=== PATIENT | female | born 1940 | race African-American/Black ===

== ENCOUNTER 2017-06-12 15:54 | Emergency (ER) | payer MEDICARE, OTHER ==
[~2017-06-12] VITALS: Ht 162.6 cm; Wt 53.5 kg
[~2017-06-12 15:54] MED LIST: COZAAR 25 MG TA25 M1; GLUCOTROL5 MG PO; HUMALOG100 UNIT/1 SUBQ; NORVASC2.5 MG PO
[2017-06-12] MEDS ORDERED: KEFLEX500 M1 PO (16:06)
[2017-06-12] MEDS ORDERED: CORTISPORIN OTI10 M2 OTIC (16:07)
[2017-06-12] MEDS ORDERED: LEVEMIR SUBQ (16:07)
[2017-06-12] MEDS ORDERED: VALTREX1000 MG PO (16:52)
[2017-06-12 16:57] VITALS: BP 140/60
[2017-06-13] MEDS ORDERED: NORCO 5-325 TA1 EACH PO (15:25)
[2017-06-13] MEDS ORDERED: BACTROBAN15 GM TOP (15:25)
== END 2017-06-12 16:58 | disposition home or self-care (01) ==
LOC: M.ERS 15:54
DX: B02.9 Zoster without complications (principal); I10 Essential (primary) hypertension; E11.9 Type 2 diabetes mellitus without complications; F10.99 Alcohol use, unspecified with unspecified alcohol-induced disorder

== ENCOUNTER 2017-06-13 14:07 | Emergency (ER) | payer MEDICARE, OTHER ==
[~2017-06-13] VITALS: Ht 162.6 cm; Wt 53.8 kg
[~2017-06-13 14:07] MED LIST changes: +CORTISPORIN OTI10 M2 OTIC; +KEFLEX500 M1 PO; +LEVEMIR SUBQ; +VALTREX1000 MG PO
[2017-06-13] MEDS ORDERED: NORCO 5-325 TA1 EACH PO (15:25)
[2017-06-13] MEDS ORDERED: BACTROBAN15 GM TOP (15:25)
[2017-06-13 15:35] VITALS: BP 137/63
== END 2017-06-13 15:36 | disposition home or self-care (01) ==
LOC: M.ERS 14:07
DX: B02.9 Zoster without complications (principal); I10 Essential (primary) hypertension; E11.9 Type 2 diabetes mellitus without complications; F03.90 Unspecified dementia, unspecified severity, without behavioral disturbance, psychotic disturbance, mood disturbance, and anxiety; F10.99 Alcohol use, unspecified with unspecified alcohol-induced disorder

== ENCOUNTER 2018-10-01 16:29 | Emergency (ER) | payer MEDICARE, OTHER ==
[~2018-10-01] VITALS: Ht 162.6 cm; Wt 53.1 kg
[~2018-10-01 16:29] MED LIST changes: +BACTROBAN15 GM TOP; +NORCO 5-325 TA1 EACH PO
[2018-10-01] MEDS ORDERED: ZOFRAN ODT4 MG PO (16:42)
[2018-10-01 17:33] LABS: HEMATOCRIT 24.6 % (37.0-47.0); HEMOGLOBIN 8.9 gm/dL (12.0-15.0); MCH 31.2 pg (26.0-34.0); MCHC 36.3 g/dL (28.0-37.0); MCV 85.9 fL (80.0-100.0); NUCLEATED RBCS 0 /100WBC; RBC 2.87 mil/uL (4.20-5.00); RDW-CV 14.3 % (10.5-14.5); WBC 3.1 thou/uL (4.0-11.0)
[2018-10-01 17:37] LABS: PLATELET COUNT* 48 thou/uL (150-400)
[2018-10-01 17:49] LABS: CALCIUM 8.8 mg/dL (8.5-10.1); CREATININE 1.1 mg/dL (0.6-1.3); POTASSIUM 4.1 mmol/L (3.5-5.1)
[2018-10-01 17:53] LABS: ALBUMIN 3.8 g/dL (3.4-5.0); TOTAL BILIRUBIN 1.1 mg/dL (<0.1-1.0)
[2018-10-01 18:14] LABS: ABSOLUTE LYMPHOCYTES 2.8 thou/uL (0.8-5.3); ABSOLUTE MONOCYTES 0.1 thou/uL (0.0-1.2); ABSOLUTE NEUTROPHILS 0.2 thou/uL (1.6-8.1); ATYPICAL LYMPHS 3 %
[2018-10-01 18:15] LABS: PLATELET ESTIMATE DECREASED
[2018-10-01 20:17] VITALS: BP 127/55
== END 2018-10-01 20:17 | disposition home or self-care (01) ==
LOC: M.ERS 16:29
PROVIDERS: Nurse Practitioner Family
DX: I82.402 Acute embolism and thrombosis of unspecified deep veins of left lower extremity (principal); I10 Essential (primary) hypertension; F03.90 Unspecified dementia, unspecified severity, without behavioral disturbance, psychotic disturbance, mood disturbance, and anxiety; E11.9 Type 2 diabetes mellitus without complications; Z79.4 Long term (current) use of insulin

== ENCOUNTER 2019-02-04 20:46 | Inpatient (IN) | payer MEDICARE, OTHER ==
[~2019-02-04] VITALS: Ht 162.6 cm; Wt 52.6 kg
[~2019-02-04 20:46] MED LIST changes: +ZOFRAN ODT4 MG PO
[2019-02-04 20:55] VITALS: BP 118/53
[2019-02-04] MEDS ORDERED: LEVAQUIN 500 M500 M2 PO (20:59)
[2019-02-04] MEDS ORDERED: VITAMIN D1000 UNI1 PO (20:59)
[2019-02-04 21:28] LABS: HEMOGLOBIN 9.3 gm/dL (12.0-15.0); MCH 33.8 pg (26.0-34.0); MPV 8.6 fl. (7.2-11.1); NUCLEATED RBCS 0 /100WBC; PLATELET COUNT* 51 thou/uL (150-400)
[2019-02-04 21:31] LABS: HEMATOCRIT 25.2 % (37.0-47.0); MCHC 36.7 g/dL (28.0-37.0); MCV 92.1 fL (80.0-100.0); RBC 2.74 mil/uL (4.20-5.00); RDW-CV 15.1 % (10.5-14.5); WBC 9.1 thou/uL (4.0-11.0)
[2019-02-04 21:36] LABS: CALCIUM 8.5 mg/dL (8.5-10.1); CREATININE 1.2 mg/dL (0.6-1.3); POTASSIUM 4.1 mmol/L (3.5-5.1)
[2019-02-04 21:41] LABS: ALBUMIN 3.8 g/dL (3.4-5.0); TOTAL BILIRUBIN 0.9 mg/dL (<0.1-1.0); TOTAL PROTEIN 6.1 g/dL (6.4-8.2)
[2019-02-04 21:42] LABS: URINE BILIRUBIN NEGATIVE (Negative); URINE BLOOD NEGATIVE (Negative); URINE CLARITY CLEAR; URINE COLOR YELLOW; URINE GLUCOSE-RANDOM 1+ (Negative); URINE KETONES NEGATIVE (Negative); URINE LEUKOCYTES-REFLEX 1+ (Negative); URINE NITRITE-REFLEX NEGATIVE (Negative); URINE PROTEIN TRACE (Negative); URINE SPECIFIC GRAVITY <= 1.005 (1.005-1.030); URINE UROBILINOGEN 0.2 E.U./dl (0.2-1.0)
[2019-02-04 21:53] LABS: BACTERIA-REFLEX >30 Many /HPF (None Seen); CASTS None Seen /LPF (None Seen); CRYSTALS None Seen /LPF (None Seen); MUCUS 0-3 Light strn/LPF (None Seen); RENAL EPITHELIAL CELLS 0-3 Few /LPF (None Seen); SQUAMOUS 0-3 Few /LPF (0-3); TRANSITIONAL EPITHEL CELL 0-3 Few /LPF (None Seen)
[2019-02-04 22:09] LABS: ABSOLUTE LYMPHOCYTES 8.5 thou/uL (0.8-5.3); ABSOLUTE MONOCYTES 0.1 thou/uL (0.0-1.2); ABSOLUTE NEUTROPHILS 0.5 thou/uL (1.6-8.1); ANISOCYTOSIS Occasional; ATYPICAL LYMPHS 2 %; PLATELET ESTIMATE DECREASED
[2019-02-05 00:14] VITALS: BP 145/66
[2019-02-05] MEDS ORDERED: ACYCLOVIR 400400 MG PO (00:52)
--- NOTE | 2019-02-05 03:20 | NUR ---
PT ARRIVED TO 200 AT 0030. ALERT & ORIENTED. HX MILD DEMENTIA. PT WAS ABLE TO ANSWER ADMISSION QUESTIONS. DTR IN ROOM IN RECLINING CHAIR. ON RA. TELEMETRY SHOWS SR. NS AT 75MLS/HR.
[2019-02-05 04:00] VITALS: BP 146/63
[2019-02-05 08:00] VITALS: BP 140/66
[2019-02-05 09:09] LABS: MAGNESIUM 1.7 mg/dL (1.8-2.4)
[2019-02-05 11:27] VITALS: BP 139/56
[2019-02-05 15:25] VITALS: BP 127/50
--- NOTE | 2019-02-05 18:27 | NUR ---
PATIENT RESTING IN BED. UP WITH STANDBY ASSIST. AOX4. IV FLUIDS PER ORDERS. PT ORDERS FOR TOMORROW. HOURLKY ROUNDING COMPLETED FOR PATIENT SAFETY
[2019-02-05 19:22] LABS: CALCIUM 8.4 mg/dL (8.5-10.1); CREATININE 1.3 mg/dL (0.6-1.3); MAGNESIUM 1.5 mg/dL (1.8-2.4); POTASSIUM 4.1 mmol/L (3.5-5.1)
[2019-02-05 20:00] VITALS: BP 139/59
[2019-02-06] VITALS: BP 158/58
--- NOTE | 2019-02-06 00:13 | NUR ---
PT IS A+O X 4. DENIES PAIN OR DIZZYNESS. STANDBY ASSIST PT TO THE BATHROOM. PT TRACING SR ON MONITOR. CALL LIGHT IN REACH. HOURLY ROUNDING FOR SAFETY.
[2019-02-06 03:07] LABS: GLYCOHEMOGLOBIN (HGB A1C) 6.2 % (4.8-5.6)
[2019-02-06 04:00] VITALS: BP 130/55
[2019-02-06 04:52] LABS: HEMATOCRIT 26.2 % (37.0-47.0); HEMOGLOBIN 9.4 gm/dL (12.0-15.0); MCH 33.4 pg (26.0-34.0); MCHC 35.9 g/dL (28.0-37.0); MCV 93.2 fL (80.0-100.0); MPV 9.1 fl. (7.2-11.1); RBC 2.81 mil/uL (4.20-5.00); WBC 10.6 thou/uL (4.0-11.0)
[2019-02-06 05:11] LABS: ALBUMIN 3.7 g/dL (3.4-5.0); CALCIUM 8.4 mg/dL (8.5-10.1); MAGNESIUM 1.6 mg/dL (1.8-2.4); POTASSIUM 3.8 mmol/L (3.5-5.1); TOTAL BILIRUBIN 0.7 mg/dL (<0.1-1.0); TOTAL PROTEIN 5.7 g/dL (6.4-8.2)
[2019-02-06 08:00] VITALS: BP 153/60
[2019-02-06] MEDS ORDERED: CEFUROXIME250 MG PO (08:27)
[2019-02-06] MEDS ORDERED: *ELECTROLYTE REPLACE PO (08:27)
--- NOTE | 2019-02-06 11:40 | NUR ---
Pt is A&O. Resides at home with her dtr. Independent, dtr completes IADLs. No DME. Hx of HH with [facility]. No hx of SNF. Pt to dc to home today. Orders for 30 day event monitor placed, CM contacted Dr Pantoja's office, updated and faxed referral to [phone].
[2019-02-06 12:00] VITALS: BP 156/60
[2019-02-06 14:38] VITALS: BP 156/60
[2019-02-06 16:00] VITALS: BP 129/54
--- NOTE | 2019-02-06 16:30 | 2DMMODE ---
[place] [address] 2 D/M-MODE ECHOCARDIOGRAM Name: DENIS NIXON Room: [address] IN [facility]#: [id number] Admission: 02/04/19 Attend Phys: Shaheen Clancy MD Discharge: Date of : 36 Date of Service: 02/06/19 1630 Report #: [id number] THIS REPORT FOR: //name// APPROVED REPORT Study performed: 02/06/2019 10:12:04 EXAM: Comprehensive 2D, Doppler, and color-flow Echocardiogram Patient Location: In-Patient Room #: 200 Status: routine BSA: 1.55 HR: 71 bpm BP: 130/55 mmHg Rhythm: NSR Other Information Study Quality: Good Indications Arrhythmia Near syncope 2D Dimensions IVSd: 10.42 (7-11mm) LVOT Diam: 20.33 (18-24mm) LVDd: 37.47 mm PWd: 10.85 (7-11mm) Ascending Ao: 32.22 (22-36mm) LVDs: 20.24 (25-40mm) Aortic Root: 27.52 mm Volumes Left Atrial Volume (Systole) LA ESV Index: 23.70 mL/m2 Aortic Valve AoV Peak Mannie.: 3.60 m/s AO Peak Gr.: 51.82 mmHg LVOT Max P.17 mmHg AO Mean Gr.: 29.87 mmHg LVOT Mean P.18 mmHg LVOT Max V: 1.14 m/s AO V2 VTI: 81.99 cm LVOT Mean V: 0.84 m/s NASIM (VTI): 1.18 cm2 LVOT V1 VTI: 29.90 cm Mitral Valve E/A Ratio: 0.97 MV Decel. Time: 234.87 [place] [address] 2 D/M-MODE ECHOCARDIOGRAM Name: DENIS NIXON Room: [address] IN .R.#: [id number] Admission: 02/04/19 Attend Phys: Shaheen Clancy MD Discharge: Date of : 36 Date of Service: 02/06/19 1630 Report #: [id number] MV E Max Mannie.: 1.10 m/s MV PHT: 68.11 ms MVA (PHT): 3.23 cm2 TDI E/Lateral E': 10.00 E/Medial E': 15.71 Medial E' Mannie.: 0.07 m/s Lateral E' Mannie.: 0.11 m/s Pulmonary Valve PV Peak Mannie.: 0.97 m/s PV Peak Gr.: 3.80 mmHg Tricuspid Valve RAP Estimate: 5.00 mmHg TR Peak Gr.: 20.82 mmHg RVSP: 25.00 mmHg PA Pressure: 25.00 mmHg Left Ventricle The left ventricle is normal size. There is normal LV segmental wall motion. There is normal left ventricular wall thickness. Left ventricular systolic function is normal. The left ventricular ejection fraction is within the normal range. LVEF is 65-70%. Grade I - abnormal relaxation pattern. Right Ventricle The right ventricle is normal size. The right ventricular systolic function is normal. Atria The left atrium size is normal. The right atrium size is normal. Aortic Valve Aortic valve leaflets are moderately thickened. No aortic regurgitation is present. Moderate aortic stenosis. Mitral Valve The mitral valve is normal in structure. Trace mitral regurgitation. No evidence of mitral valve stenosis. Tricuspid Valve The tricuspid valve is normal in structure. Trace tricuspid regurgitation. estimated pa pressure 30 mm hg Pulmonic Valve The pulmonary valve is normal in [place] [address] 2 D/M-MODE ECHOCARDIOGRAM Name: DENIS NIXON Room: [address]#: [id number] Admission: 02/04/19 Attend Phys: Shaheen Clancy MD Discharge: Date of : 36 Date of Service: 02/06/19 1630 Report #: [id number] regurgitation. Great Vessels The aortic root is normal in size. IVC is normal in size and collapses >50% with inspiration. Pericardium There is no pericardial effusion. <Conclusion> LVEF is 65-70%. Moderate aortic stenosis. <ELECTRONICALLY SIGNED> By: Constantino Stockton MD, [facility] 02/06/191629 29 29 Constantino Stockton MD, FAC /INF
--- NOTE | 2019-02-06 17:59 | NUR ---
PT VSS, TELE NORMAL SINUS RHYTHM, PT AMBULATES WITH HAND HELD. HOURLY ROUNDING PERFORMED, HIGH FALL RISK, POSSESSIONS AND CALL LIGHT WITHIN REACH, DAUGHTER AT BEDSIDE. RECEIVED DISCHARGE ORDERS, DISCONTINUED IV WITHOUT COMPLICATION, REMOVED TELE MONITOR, REVIEWED DISCHARGE INSTRUCTIONS WITH PT AND DAUGHTER, GAVE PT HARD SCRIPT FOR ANTIBIOTIC AND MEDICATION CARE NOTES. PUSHED PT BY WHEELCHAIR TO FRONT DOOR PICKED UP BY DAUGHTER.
== END 2019-02-06 18:08 | disposition home or self-care (01) | DRG 690 ==
LOC: M.ERS 20:46 → M.TBA-ER 23:29 → M.2W 23:29
PROVIDERS: Family Medicine; Personal Emergency Response Attendant; ADMIT Family Medicine
DX: N30.91 Cystitis, unspecified with hematuria (principal); E87.1 Hypo-osmolality and hyponatremia; F03.90 Unspecified dementia, unspecified severity, without behavioral disturbance, psychotic disturbance, mood disturbance, and anxiety; I10 Essential (primary) hypertension; E11.65 Type 2 diabetes mellitus with hyperglycemia; E83.42 Hypomagnesemia; D69.6 Thrombocytopenia, unspecified; E86.9 Volume depletion, unspecified; I35.0 Nonrheumatic aortic (valve) stenosis; R55 Syncope and collapse; Z85.6 Personal history of leukemia; Z92.21 Personal history of antineoplastic chemotherapy; Z79.899 Other long term (current) drug therapy; Z79.4 Long term (current) use of insulin; Z86.718 Personal history of other venous thrombosis and embolism

== ENCOUNTER 2019-12-15 06:55 | Inpatient (IN) | payer MEDICARE, OTHER ==
[~2019-12-15] VITALS: Ht 160 cm; Wt 64.0 kg
[~2019-12-15 06:55] MED LIST changes: +*ELECTROLYTE REPLACE PO; +ACYCLOVIR 400400 MG PO; +CEFUROXIME250 MG PO; +LEVAQUIN 500 M500 M2 PO; +VITAMIN D1000 UNI1 PO
[2019-12-15 07:07] VITALS: BP 156/67
[2019-12-15] MEDS ORDERED: LISINOPRIL2.5 MG PO (07:16)
[2019-12-15] MEDS ORDERED: REMERON15 M2 PO (07:16)
[2019-12-15] MEDS ORDERED: ONDANSETRON ODT8 MG PO (07:17)
[2019-12-15] MEDS ORDERED: PROTONIX40 M2 PO (07:17)
[2019-12-15] MEDS ORDERED: AMOXICILLIN 50500 MG PO (07:18)
[2019-12-15] MEDS ORDERED: BIAXIN 500 MG500 M2 PO (07:18)
[2019-12-15] MEDS ORDERED: ALLOPURINOL 10100 M3 PO (07:19)
[2019-12-15] MEDS ORDERED: ACYCLOVIR 400400 MG PO (07:19)
[2019-12-15] MEDS ORDERED: NORVASC 2.5 MG2.5 M1 PO (07:20)
[2019-12-15] MEDS ORDERED: LEVEMIR100 UNIT/1 (07:21)
[2019-12-15 08:06] LABS: ABSOLUTE LYMPHOCYTES 0.7 thou/uL (0.8-5.3); ABSOLUTE MONOCYTES 0.1 thou/uL (0.0-1.2); ABSOLUTE NEUTROPHILS 2.7 thou/uL (1.6-8.1); BASOPHILS 0.9 %; HEMATOCRIT 30.1 % (37.0-47.0); HEMOGLOBIN 11.7 gm/dL (12.0-15.0); LYMPHOCYTES 20.3 %; MCH 34.5 pg (26.0-34.0); MCHC 38.9 g/dL (28.0-37.0); MCV 88.6 fL (80.0-100.0); MONOCYTES 2.5 %; MPV 7.5 fl. (7.2-11.1); NUCLEATED RBCS 0 /100WBC; PLATELET COUNT* 52 thou/uL (150-400); POLYS 76.3 %; RDW-CV 14.4 % (10.5-14.5); WBC 3.5 thou/uL (4.0-11.0)
[2019-12-15 08:13] LABS: CALCIUM 8.7 mg/dL (8.5-10.1); CREATININE 1.4 mg/dL (0.6-1.3); POTASSIUM 4.6 mmol/L (3.5-5.1)
[2019-12-15 08:18] LABS: ALBUMIN 4.2 g/dL (3.4-5.0); TOTAL BILIRUBIN 1.5 mg/dL (<0.1-1.0); TOTAL PROTEIN 6.7 g/dL (6.4-8.2)
[2019-12-15 09:53] LABS: URINE BILIRUBIN NEGATIVE (Negative); URINE BLOOD 3+ (Negative); URINE CLARITY CLEAR; URINE COLOR YELLOW; URINE GLUCOSE-RANDOM NEGATIVE (Negative); URINE KETONES NEGATIVE (Negative); URINE LEUKOCYTES-REFLEX NEGATIVE (Negative); URINE NITRITE-REFLEX NEGATIVE (Negative); URINE PROTEIN 1+ (Negative); URINE SPECIFIC GRAVITY 1.015 (1.005-1.030); URINE UROBILINOGEN 0.2 E.U./dl (0.2-1.0)
[2019-12-15 10:02] LABS: BACTERIA-REFLEX 1-9 Few /HPF (None Seen); CASTS None Seen /LPF (None Seen); CRYSTALS None Seen /LPF (None Seen); MUCUS None Seen strn/LPF (None Seen); SQUAMOUS 4-10 Moderate /LPF (0-3); URINE WBC-REFLEX 0-5 Rare /HPF (0-5)
[2019-12-15 12:00] VITALS: BP 146/62; BP 151/69
--- NOTE | 2019-12-15 13:11 | EKG ---
[place] [id number] ELECTROCARDIOGRAM REPORT Name: DENIS NIXON Room: [address] ADM IN .R.#: [id number] Admission: 12/15/19 Attend Phys: Pablo Dyson Discharge: Date of : 36 Date of Service: 12/15/19 0745 Report #: [id number] THIS REPORT FOR: //name// [facility] ED Test Date: 2019-12-15 Test Time: 07:45:25 Pat Name: DENIS NIXON Department: Room: [facility] Gender: F Residential Driver: : [id number] Requested By: Dougie Gale Order Number: [id number] MD: Rafiq Delvalle Measurements Intervals [place] Rate: 101 P: 70 NC: 173 QRS: -9 QRSD: 79 T: 71 QT: 325 QTc: 422 Interpretive Statements Sinus tachycardia Consider right atrial enlargement Left ventricular hypertrophy Compared to ECG 03/29/2017 21:46:54 Sinus rate has increased Electronically Signed On 12-15-2019 13:11:22 CDT by Rafiq Delvalle [email or web address] <ELECTRONICALLY SIGNED> By: Rafiq Delvalle MD, [facility] 12/15/19 1311 0745 0745 Rafiq Delvalle MD, [facility] /EPI
--- NOTE | 2019-12-15 14:54 | 2DMMODE ---
[place] [address] 2 D/M-MODE ECHOCARDIOGRAM Name: NIXONDENIS Room: [address] IN [place].#: [id number] Admission: 12/15/19 Attend Phys: Pablo Dyson Discharge: Date of : 36 Date of Service: 12/15/19 1454 Report #: [id number] THIS REPORT FOR: cc: FAM - No family physician/PCP FAM - No family physician/PCP Rafiq Delvalle MD [facility] ~ APPROVED REPORT Study performed: 12/15/2019 14:00:43 EXAM: Comprehensive 2D, Doppler, and color-flow Echocardiogram Patient Location: In-Patient Room #: [facility] Status: routine BSA: 1.50 HR: 96 bpm BP: 151/69 mmHg Rhythm: NSR Other Information Study Quality: Good Indications Murmur 2D Dimensions IVSd: 12.97 (7-11mm) LVOT Diam: 19.42 (18-24mm) LVDd: 30.47 mm PWd: 10.81 (7-11mm) Ascending Ao: 26.42 (22-36mm) LVDs: 18.06 (25-40mm) Aortic Root: 28.18 mm Volumes Left Atrial Volume (Systole) LA ESV Index: 19.80 mL/m2 Aortic Valve AoV Peak Mannie.: 3.60 m/s AO Peak Gr.: 51.88 mmHg LVOT Max P.62 mmHg AO Mean Gr.: 33.01 mmHg LVOT Mean P.43 mmHg LVOT Max V: 1.29 m/s AO V2 VTI: 59.10 cm LVOT Mean V: 0.85 m/s NASIM (VTI): 0.99 cm2 LVOT V1 VTI: 19.70 [place] [address] 2 D/M-MODE ECHOCARDIOGRAM Name: DENIS NIXON Room: [address] IN ..#: [id number] Admission: 12/15/19 Attend Phys: Pablo Dyson Discharge: Date of : 36 Date of Service: 12/15/19 1454 Report #: [id number] Mitral Valve E/A Ratio: 0.51 MV Decel. Time: 240.35 ms MV E Max Mannie.: 0.68 m/s MV PHT: 69.70 ms MVA (PHT): 3.16 cm2 TDI E/Lateral E': 9.71 E/Medial E': 13.60 Medial E' Mannie.: 0.05 m/s Lateral E' Mannie.: 0.07 m/s Pulmonary Valve PV Peak Mannie.: 1.50 m/s PV Peak Gr.: 9.04 mmHg Tricuspid Valve RAP Estimate: 5.00 mmHg TR Peak Gr.: 28.79 mmHg RVSP: 33.00 mmHg PA Pressure: 33.00 mmHg Left Ventricle The left ventricle is normal size. There is normal LV segmental wall motion. Mild to moderate concentric left ventricular hypertrophy. Left ventricular systolic function is normal. The left ventricular ejection fraction is within the normal range. LVEF is 65%. Grade I - abnormal relaxation pattern. Right Ventricle The right ventricle is normal size. The right ventricular systolic function is normal. Atria The left atrium size is normal. The right atrium size is normal. Aortic Valve Moderate aortic valve sclerosis. No aortic regurgitation is present. Moderate aortic stenosis. Mitral Valve The mitral valve is normal in structure. There is no mitral valve regurgitation noted. No evidence of mitral valve stenosis. Tricuspid Valve The tricuspid valve is normal in structure. Mild tricuspid regurgitation. Mild pulmonary [place] [address] 2 D/M-MODE ECHOCARDIOGRAM Name: DENIS NIXON Room: [address]#: [id number] Admission: 12/15/19 Attend Phys: Pablo Dyson Discharge: Date of : 36 Date of Service: 12/15/19 1454 Report #: [id number] Pulmonic Valve The pulmonary valve is normal in structure. There is no pulmonic valvular regurgitation. Great Vessels The aortic root is normal in size. IVC is not well visualized. Pericardium There is no pericardial effusion. <Conclusion> The left ventricle is normal size. Mild to moderate concentric left ventricular hypertrophy. Left ventricular systolic function is normal. The left ventricular ejection fraction is within the normal range. LVEF is 65%. Grade I - abnormal relaxation pattern. The left atrium size is normal. Moderate aortic valve sclerosis. No aortic regurgitation is present. Moderate aortic stenosis. The mitral valve is normal in structure. The tricuspid valve is normal in structure. Mild tricuspid regurgitation. Mild pulmonary hypertension. There is no pericardial effusion. There is normal LV segmental wall motion. <ELECTRONICALLY SIGNED> By: Rafiq Delvalle MD, [facility]ACC 12/15/19 1454 1454 1454 Rafiq Delvalle MD, FACC /INF
[2019-12-15 16:00] VITALS: BP 149/67
[2019-12-15 20:00] VITALS: BP 146/67
--- NOTE | 2019-12-15 20:14 | NUR ---
ARRIVED FROM ER AROUND 1150, VS CHARTED, A&OX4- ANXIOUS, CONFUSION AND FORGETFULNESS AT BASELINE, SR TO ST ON TELE, ROOM AIR, BEDREST- SYNCOPE AT HOME, USING BEDPAN FOR BM AND [place] FOR URINE, ADMISSION COMPLETED, HOURLY ROUNDING PERFORMED, POSSESSIONS AND CALL LIGHT WITHIN REACH
[2019-12-15 21:04] LABS: CALCIUM 8.9 mg/dL (8.5-10.1); CREATININE 1.4 mg/dL (0.6-1.3); MAGNESIUM 1.8 mg/dL (1.8-2.4); POTASSIUM 4.2 mmol/L (3.5-5.1)
[2019-12-16 01:00] VITALS: BP 109/54
[2019-12-16 04:00] VITALS: BP 133/64
[2019-12-16 05:16] LABS: HEMOGLOBIN 9.9 gm/dL (12.0-15.0); MCHC 37.8 g/dL (28.0-37.0); MPV 8.4 fl. (7.2-11.1); NUCLEATED RBCS 0 /100WBC; RDW-CV 14.1 % (10.5-14.5); WBC 2.6 thou/uL (4.0-11.0)
[2019-12-16 05:17] LABS: CALCIUM 8.2 mg/dL (8.5-10.1); CREATININE 1.3 mg/dL (0.6-1.3); POTASSIUM 4.1 mmol/L (3.5-5.1)
[2019-12-16 05:51] LABS: HEMATOCRIT 26.3 % (37.0-47.0); MCH 34.2 pg (26.0-34.0); MCV 90.5 fL (80.0-100.0); PLATELET COUNT* 52 thou/uL (150-400); RBC 2.91 mil/uL (4.20-5.00)
--- NOTE | 2019-12-16 06:10 | NUR ---
ASSUMED AT CARE AT APPROX 1930. PT IS AWAKE AND ORIENTED TO SELF AND PLACE, FORGETFUL. PT IS TRACING SR ON THE COMPANY CONTROLLER. PT IS NOT IN DISTRESS. NO DESATURATIONS NOTED ON ROOM AIR. POSITION CHANGES DONE Q2H. NO ACUTE CHANGES THROUGH THE NIGHT. CALL LIGHT WITHIN REACH. HOURLY ROUNDING DONE FOR PT SAFETY. HIGH FALL PRECAUTIONS IN PLACE.
[2019-12-16 06:26] LABS: ABSOLUTE BASOPHILS 0.1 thou/uL (0.0-0.2); ABSOLUTE LYMPHOCYTES 1.4 thou/uL (0.8-5.3); ABSOLUTE MONOCYTES 0.3 thou/uL (0.0-1.2); ABSOLUTE NEUTROPHILS 0.7 thou/uL (1.6-8.1); ATYPICAL LYMPHS 1 %; METAMYELOCYTES 1 %
[2019-12-16 06:27] LABS: PLATELET ESTIMATE DECREASED
--- NOTE | 2019-12-16 07:10 | NUR ---
CHANGE OF SHIFT, BEDSIDE REPORT GIVEN PATIENT SEEN AT BEDSIDE, IN BED RESTING ASSUMED PATIENT CARE
[2019-12-16 08:00] VITALS: BP 137/63
[2019-12-16 12:41] VITALS: BP 116/56
[2019-12-16 13:58] LABS: CALCIUM 8.1 mg/dL (8.5-10.1); CREATININE 1.5 mg/dL (0.6-1.3); POTASSIUM 4.3 mmol/L (3.5-5.1)
[2019-12-16 17:09] VITALS: BP 105/46
[2019-12-16 20:00] VITALS: BP 108/48
[2019-12-17] VITALS: BP 114/51
[2019-12-17 04:00] VITALS: BP 138/67
--- NOTE | 2019-12-17 07:10 | NUR ---
CHANGE OF SHIFT, BEDSIDE REPORT GIVEN PATIENT SEEN AT BEDSIDE, IN BED ASLEEP ASSUMED PATIENT CARE
--- NOTE | 2019-12-17 07:21 | NUR ---
ASSUMED CARE OF PT AFTER REPORT AT 1930. PT A&OX3 AT THE START OF THE SHIFT BUT MORE CONFUSED AND ANXIOUS ALL NIGHT. PT TRACING SR/ST ON TELE. PT UP WITH 2 ASSIST TO BSC. PT ALSO HAS EPISODES OF INCONTINENT BLADDER. PT DENIES ANY PAIN. FALL PRECAUTIONS IN PLACE. CALL LIGHT WITHINI REACH.
[2019-12-17 08:00] VITALS: BP 139/61
[2019-12-17 12:35] LABS: ABSOLUTE LYMPHOCYTES 0.7 thou/uL (0.8-5.3); ABSOLUTE MONOCYTES 0.2 thou/uL (0.0-1.2); ABSOLUTE NEUTROPHILS 1.4 thou/uL (1.6-8.1); BASOPHILS 1.5 %; EOSINOPHILS 0.8 %; HEMATOCRIT 26.7 % (37.0-47.0); LYMPHOCYTES 29.4 %; MCHC 37.6 g/dL (28.0-37.0); MCV 90.5 fL (80.0-100.0); MONOCYTES 10.1 %; MPV 7.6 fl. (7.2-11.1); NUCLEATED RBCS 0 /100WBC; PLATELET COUNT* 56 thou/uL (150-400); POLYS 58.2 %; RBC 2.95 mil/uL (4.20-5.00); RDW-CV 14.2 % (10.5-14.5); WBC 2.3 thou/uL (4.0-11.0)
[2019-12-17 12:47] LABS: ALBUMIN 3.4 g/dL (3.4-5.0); CALCIUM 7.8 mg/dL (8.5-10.1); CREATININE 1.2 mg/dL (0.6-1.3); MAGNESIUM 1.4 mg/dL (1.8-2.4); TOTAL BILIRUBIN 1.2 mg/dL (<0.1-1.0); TOTAL PROTEIN 5.9 g/dL (6.4-8.2)
[2019-12-17 16:00] VITALS: BP 125/53
[2019-12-17 20:00] VITALS: BP 114/51
[2019-12-18] VITALS: BP 107/46
[2019-12-18 04:00] VITALS: BP 111/40
--- NOTE | 2019-12-18 07:28 | NUR ---
ASSUMED CARE OF PT AFTER REPORT AT 1930. PT A&OX3. CONFUSED & FORGETFUL AT TIMES. VSS. PHYSICAL ASSESSMENT COMPLETED AND CHARTED. PT ON RA. PT TRACING SR ON TELE. PT WITH EPISODES OF INCONTINENT BLADDER. PT BLOOD SUGAR WAS 312 LST NIGHT-DR HARRINGTON MADE AWARE WITH NEW ORDER. MAGNESIUM 1.7 THIS AM ELECTROLYTE PROTOCOL IN PLACE.
[2019-12-18 08:02] VITALS: BP 114/42
--- NOTE | 2019-12-18 09:19 | NUR ---
ASSUMED CARE OF PT THIS AM AROUND 0715- STUDENT IN PLACE ORDERED, TRACING SR- UPON ASSESSMENT PT NOTED TO BE RESTING IN BED WITH EYES CLOSED- PT ARROUSABLE A&O X3-4 WITH INTERMITENT FORGETFULLNESS- INCONT OF B/B- Q [address] INDICATED- LCTA, RESP EVEN AND UN-LABORED- VSS. O2 SAT 100% ON RA-ABD SOFT/ROUND/NON-TENDER, BS X4 QUADS- LAST BM REPORTED 726/20- IV NOTED TO RIGHT FA INTACT, IVF INFUSSING PRESCRIBED- SET UP ASSISTANCE REQUIRED WITH MEALS, GOOD PO INTAKE NOTED THIS AM WITH BREAKFAST- BS MONITORED WITH INSULIN GIVEN PRESCRIBED- PT DENIES ANY C/O PAIN/DISCOMFORT AT THIS TIME- CALL LIGHT AND PERSONAL BELONGINGS WITH IN REACH- HOURLY ROUNDS IN PLACE R/T SAFETY/NEEDS- ALL NEEDS MET AT THIS TIME-WCTM
[2019-12-18 13:39] VITALS: BP 116/46
--- NOTE | 2019-12-18 13:50 | NUR ---
CM SPOKE TO THE PT AND HER DTR TO DISCUSS HER HOME SITUATION, DISCHARGE PLANNING, AND TO INFORM OF THE ROLE OF CM. PT ALERT AND ORIENTED TO SELF. PT RESIDES AT HOME WITH HER DTR AND SHE ASSIST THE PT WITH CARES NEEDED. PT OWNS A CAN AND CURRENTLY USES IT FOR MOBILITY. PT HAS 0 HX OF SNF. PT HAS HX OF HH WITH [facility]. PT'S DTR REQUEST FOR PT/OT EVAL FOR WALKER AND HOME VS SNF WITH PT'S CURRENT WEAKNESS. CM TO INFORM HSOPITALIST OF ALL OF THE ABOVE INFO. CM WILL REMAIN AVAILABLE TO ASSIST AND FOLLOW NEEDED.
[2019-12-18 17:43] VITALS: BP 111/45
[2019-12-18 20:00] VITALS: BP 127/54
[2019-12-19] VITALS: BP 120/50
[2019-12-19 04:00] VITALS: BP 116/53
[2019-12-19 05:00] LABS: HEMATOCRIT 23.3 % (37.0-47.0); HEMOGLOBIN 8.7 gm/dL (12.0-15.0); MCH 34.2 pg (26.0-34.0); MCHC 37.5 g/dL (28.0-37.0); MCV 91.3 fL (80.0-100.0); MPV 8.1 fl. (7.2-11.1); RBC 2.55 mil/uL (4.20-5.00); RDW-CV 14.1 % (10.5-14.5)
[2019-12-19 05:26] LABS: ALBUMIN 2.9 g/dL (3.4-5.0); CALCIUM 7.7 mg/dL (8.5-10.1); CREATININE 1.3 mg/dL (0.6-1.3); MAGNESIUM 1.9 mg/dL (1.8-2.4); POTASSIUM 4.2 mmol/L (3.5-5.1); TOTAL BILIRUBIN 1.1 mg/dL (<0.1-1.0); TOTAL PROTEIN 5.1 g/dL (6.4-8.2)
--- NOTE | 2019-12-19 05:28 | NUR ---
ASSUMED CARE OF PT AFTER REPORT AT 1930. PT A&OX4. FORGETFUL & CONFUSED AT TIMES. PT ALSO ANXIOUS ALWAYS WANTS SOMEONE TO STAY INSIDE IN THE ROOM. VSS. PHYSICAL ASSESSMENT COMPLETED AND CHARTED. PT WITH EPISODE OF INCONTINENT BLADDER. STRAIGHT CATHETERIZATION DONE FOR LAB ORDER. URINE SPECIMEN SENT TO LAB. PT DENIES ANY PAIN. FALL PRECAUTIONS IN PLACE. CALL LIGHT WITHIN REACH.
[2019-12-19 07:43] VITALS: BP 145/58
--- NOTE | 2019-12-19 09:03 | NUR ---
ASSUMED CARE OF PT THIS AM AROUND 0715- DIRECTOR OF TESTING IN PLACE ORDERED, TRACING SR- UPON ASSESSMENT PT NOTED TO BE RESTING IN BED, EYES CLOSED- PT ARROUSABLE A&O X3 WITH FORGETFULLNESS- CONT VS INCONT OF B/B- Q [address] INDICATED- LCTA, RESP EVEN AND UN-LABORED- VSS, O2 SAT 99% ON RA- SET UP ASSIST WITH BREAKFAST NOTED, GOOD PO INTAKE- BS MONITORED ORDERED, INSULIN PRESCRIBED- IV NOTED TO RIGHT FA INTACT, IVF INFUSSING PRESCRIBED- ABD SOFT/ROUND/NON-TENDER, LAST BM REPORTED X3 DAYS AGO- PT DENIES ANY C/O PAIN/DISCOMFORT AT THIS TIME- CALL LIGHT AND PERSONAL BELONGINGS WITH IN REACH-HOURLY ROUNDS IN PLACE R/T SAFETY/NEEDS- ALL NEEDS MET AT THIS TIME-WCTM
[2019-12-19 12:00] VITALS: BP 126/67
--- NOTE | 2019-12-19 13:07 | NUR ---
PT eval to be completed today. Plan home with HH at dc. Anticipate dc to home tomorrow.
[2019-12-19 16:00] VITALS: BP 112/57
[2019-12-19 20:00] VITALS: BP 119/52
[2019-12-20] VITALS: BP 119/50
[2019-12-20 03:43] LABS: HEMATOCRIT 22.4 % (37.0-47.0); HEMOGLOBIN 8.4 gm/dL (12.0-15.0); MCH 34.2 pg (26.0-34.0); MCHC 37.7 g/dL (28.0-37.0); MCV 90.6 fL (80.0-100.0); MPV 7.7 fl. (7.2-11.1); RBC 2.47 mil/uL (4.20-5.00); RDW-CV 13.9 % (10.5-14.5); WBC 2.2 thou/uL (4.0-11.0)
[2019-12-20 04:00] VITALS: BP 125/57
[2019-12-20 04:02] LABS: CALCIUM 8.4 mg/dL (8.5-10.1); CREATININE 1.1 mg/dL (0.6-1.3); MAGNESIUM 1.7 mg/dL (1.8-2.4); POTASSIUM 4.4 mmol/L (3.5-5.1)
--- NOTE | 2019-12-20 06:34 | NUR ---
ASSUMED CARE OF PT AFTER REPORT AT 1930. PT A&OX4 AT THE START OF THE SHIFT BUT MORE CONFUSED & FORGETFUL THROUGHOUT THE NIGHT. VSS. PHYSICAL ASSESSMENT COMPLETED AND CHARTED. PT ON RA. PT TRACING SR/ST ON TELE. PT WITHE EPISODES OF INCONTINENT BOWEL & BLADDER. PT COMPLAINED OF BACK PAIN AND DIFFICULTY URINATING. BLADDER SCAN SHOWS >359-DR CASPER MADE AWARE WITH NEW ORDER. FALL PRECAUTIONS IN PLACE. CALL LIGHT WITHIN REACH.
[2019-12-20 07:41] VITALS: BP 116/59
--- NOTE | 2019-12-20 09:14 | NUR ---
ASSUMED CARE OF PT THIS AM AROUND 0715- NURSE OBGYN IN PLACE ORDERED, TRACING SR- UPON ASSESSMENT PT NOTED TO BE RESTING IN BED- PT NOTED TO BE MORE CONFUSED THIS THEN PRIOR DAYS- A&O X2-3, FORGETFULL- CONT VS INCONT WITH URINE FREQUENCY NOTED- LCTA, RESP EVEN AND UN-LABORED- VSS, O2 SAT 100% ON RA- ABD SOFT/ROUND/NON-TEDNER, BS X 4 QUADS- SET UP ASSIST WITH BREAKFAST, GOOD PO INTAKE NOTED- IV NOTED TO RIGHT FA INTACT AND SL- MG NOTED AT 1.7 THIS AM AND IS CURRENLTY BEING REPLACED PER IV PER PROTOCOL- Q [address] INDICATED- PT DENIES ANY C/O PAIN/DISCOMFORT AT THIS TIME- CALL LIGHT AND PERSONAL BELONGINGS WITH IN REACH- PT MAKES NEEDS KNOWN- ALL NEEDS MET AT THIS TIME-WCTM
--- NOTE | 2019-12-20 12:35 | NUR ---
Pt M/S status. PT worked with Pt this morning, Pt did better. Low NA, anticipate dc in 1-2 days. Therapies to continue to work with Pt. Plan dc home with HH.
[2019-12-20 18:26] VITALS: BP 132/58
[2019-12-20 19:16] LABS: URINE BILIRUBIN NEGATIVE (Negative); URINE BLOOD NEGATIVE (Negative); URINE CLARITY CLEAR; URINE COLOR YELLOW; URINE GLUCOSE-RANDOM NEGATIVE (Negative); URINE KETONES NEGATIVE (Negative); URINE LEUKOCYTES-REFLEX NEGATIVE (Negative); URINE NITRITE-REFLEX NEGATIVE (Negative); URINE PROTEIN TRACE (Negative); URINE UROBILINOGEN 0.2 E.U./dl (0.2-1.0)
[2019-12-20 20:00] VITALS: BP 123/56
[2019-12-21] VITALS: BP 132/60
[2019-12-21 05:02] LABS: CALCIUM 8.1 mg/dL (8.5-10.1); CREATININE 1.3 mg/dL (0.6-1.3); POTASSIUM 4.4 mmol/L (3.5-5.1)
--- NOTE | 2019-12-21 05:46 | NUR ---
ASSUMED CARE OF PT AFTER REPORT AT 1930. PT A&OX2. CONFUSED & FORGETFUL. ANXIOUS AT THE START OF THE SHIFT. VSS. PHYSICAL ASSESSMENT COMPLETED AND CHART. PT ON RA. PT ON MEDSURG STATUS. PT WITH PONCE TO DEPENDENT DRAIN. PT ABLE TO SLEEP WELL ON BED. FALL PRECAUTIONS IN PLACE. CALL LIGHT WITHIN REACH.
[2019-12-21 08:53] VITALS: BP 119/59
[2019-12-21] MEDS ORDERED: FLOMAX0.4 MG PO (09:55)
[2019-12-21] MEDS ORDERED: SODIUM CHLORIDE1 G2 PO (09:58)
--- NOTE | 2019-12-21 11:10 | NUR ---
Pt discharging to home today, faxed dc orders to [facility]. Dtr in room and in agreement with POC.
--- NOTE | 2019-12-21 11:55 | NUR ---
DISCTONTINUE IV AND PT WILL DE DISCAHRGED TO HOME WITH PONCE CATHETER LEFT IN PLACE. PT AND DAUGHTER UNDERSTAND ALL FOLLOW UP ORDERS.
[2019-12-21 12:35] VITALS: BP 133/76
[2019-12-21 12:39] VITALS: BP 105/54
== END 2019-12-21 14:45 | disposition home health service (06) | DRG 643 ==
LOC: M.ERS 06:55 → M.2W 08:37 → M.TBA-ER 08:37 → M.2W 12:24
PROVIDERS: Emergency Medicine Emergency Medical Services; Internal Medicine; ADMIT Internal Medicine; ATTEND Internal Medicine
DX: E22.2 Syndrome of inappropriate secretion of antidiuretic hormone (principal); D61.810 Antineoplastic chemotherapy induced pancytopenia; N17.9 Acute kidney failure, unspecified; E44.0 Moderate protein-calorie malnutrition; Z20.828 Contact with and (suspected) exposure to other viral communicable diseases; F03.90 Unspecified dementia, unspecified severity, without behavioral disturbance, psychotic disturbance, mood disturbance, and anxiety; R01.1 Cardiac murmur, unspecified; E11.22 Type 2 diabetes mellitus with diabetic chronic kidney disease; I12.9 Hypertensive chronic kidney disease with stage 1 through stage 4 chronic kidney disease, or unspecified chronic kidney disease; N18.3 Chronic kidney disease, stage 3 (moderate); R74.0 Nonspecific elevation of levels of transaminase and lactic acid dehydrogenase [LDH]; Z86.718 Personal history of other venous thrombosis and embolism; Z87.891 Personal history of nicotine dependence; Z68.25 Body mass index [BMI] 25.0-25.9, adult